=== PATIENT | female | born 1985 | race American Indian/Alaskan Native ===

== ENCOUNTER 2017-10-12 20:37 | Emergency (ER) | payer SELFPAY ==
[2017-10-12] MEDS ORDERED: NACL 0.9% 1000 ML 1,000 ML IV ONE (21:09)
[2017-10-12] MEDS ORDERED: ZOFRAN IV ONE (21:09)
--- NOTE | 2017-10-12 21:12 | Emergency Department Report ---
HPI - General Chief Complaint: Syncope Time Seen by Provider: 10/12/17 21:04 - HPI HPI: 31-year-old female presents to the emergency department, brought in by her sister, after the patient had a witnessed episode of passing out while [place] the park. She fell down and hit her head and started having some bleeding from the nose. Since then she has gotten nauseated and has been vomiting, sometimes with blood. She came into triage and appears to be going in and out of consciousness. She has a past medical history of hypertension. She does not have a primary care physician. She did not receive anything for her symptoms prior presentation. ED Past Medical Hx - Past Medical History Hx Hypertension: Yes - Surgical History Additional Surgical History: ovarian cyst. - Social History Smoking Status: Never Smoker Substance Use Type: None ED Review of Systems ROS: Stated complaint: PASSED OUT Other details as noted in HPI Comment: All other systems reviewed and negative Constitutional: denies: chills, fever Eyes: denies: eye pain, eye discharge, vision change ENT: epistaxis. denies: ear pain, throat pain Respiratory: denies: cough, shortness of breath, wheezing Cardiovascular: syncope. denies: chest pain, palpitations Gastrointestinal: nausea, vomiting Genitourinary: denies: urgency, dysuria, discharge Musculoskeletal: denies: back pain, joint swelling, arthralgia Skin: denies: rash, lesions Neurological: headache. denies: numbness Physical Exam - Physical Exam Vital Signs: Vital Signs 10/12/17 20:41 Temperature 98.3 F Pulse Rate 96 H Respiratory 18 Rate Blood Pressure 119/82 O2 Sat by Pulse 100 Oximetry Physical Exam: GENERAL: Patient is ill-appearing. Actively vomiting. HENT: Normocephalic. Patient has moist mucous membranes. Normal appearing right external ear canal and tympanic membrane. The left external ear canal is also unremarkable. However there is either a complete perforation of the left TM or she has a severe otitis media as there is dark erythema, inflammation seen to the proximal portion of the ear canal. EYES: Extraocular motions are intact. Pupils equal reactive to light bilaterally. NECK: Supple. Trachea is midline. CHEST/LUNGS: Clear to auscultation. There is no respiratory distress noted. HEART/CARDIOVASCULAR: Regular. There is no tachycardia. There is no murmur. ABDOMEN: Abdomen is soft, nontender. Patient has normal bowel sounds. There is no abdominal distention. SKIN: Skin is warm and dry. NEURO: Patient is awake but does appear drowsy. Mostly non-verbal but will say a few words in response to questions. Follow some commands. Withdraws to painful stimuli. GCS 14. MUSCULOSKELETAL: There is no tenderness or deformity. There is no limitation range of motion. ED Course Vital Signs 10/12/17 20:41 Temperature 98.3 F Pulse Rate 96 H Respiratory 18 Rate Blood Pressure 119/82 O2 Sat by Pulse 100 Oximetry - Consultations Consultation #1: As the patient has a left temporal nondisplaced skull fracture and a 1 cm left parietal/occipital subdural hematoma, patient will need transfer to another facility that has both neurosurgery and trauma. [facility] is on diversion. There are no ICU beds available at [facility] or [facility] at this time. 10/12/17 23:07 10/12/17 23:36 The patient was accepted for transfer to [facility] by the trauma attending , Dr Ozuna. ED Medical Decision Making - Lab Data Result diagrams: 10/12/17 21:13 10/12/17 21:13 - EKG Data -: EKG Interpreted by Mo EKG shows normal: sinus rhythm, axis, intervals, QRS complexes, ST-T waves Rate: normal - EKG Data When compared to previous EKG there are: previous EKG unavailable Interpretation: normal EKG - Radiology Data Radiology results: report reviewed PROCEDURE: CT HEAD/BRAIN WO CON TECHNIQUE: Computerized tomography of the head was performed without contrast material. HISTORY: Syncope COMPARISON: No prior studies are available for comparison. FINDINGS: There is a nondisplaced left temporal skull fracture. There is a left parietal/occipital subdural hematoma measuring up to 1 centimeter in thickness. There is minimal left the occipital/parietal pneumocephalus. There is no midline shift. The ventricles and cortical sulci are appropriate for the patient's age. The paranasal sinuses are clear. IMPRESSION: Left parietal/occipital subdural hematoma measuring up to 1 centimeter in thickness. There is no midline shift or herniation. Dr. Jalloh was notified by telephone at 9:43 p.m. central. Transcribed By: CO Dictated By: LYN BELL MD Electronically Authenticated By: LYN BELL MD Signed Date/Time: 10/12/172244 PROCEDURE: CT CERVICAL SPINE WO CON TECHNIQUE: Computerized tomography of the cervical spine was performed from the skull base to T1 without contrast material. HISTORY: Syncope COMPARISON: No prior studies are available for comparison. FINDINGS: Cervical vertebrae are intact. There are no fractures or malalignments. Disc spaces are normal. Facet joints are intact. Prevertebral soft tissues are normal in thickness. IMPRESSION: There is no cervical spine injury.. Transcribed By: CO Dictated By: LYN BELL MD Electronically Authenticated By: LYN BELL MD Signed Date/Time: 10/12/172245 - Medical Decision Making Patient presented after a ground-level fall from a syncopal episode. She has had some complaint of a headache, nausea and vomiting. There is some blood seen in the left nasal passage and the complaint that there was some blood in the emesis, which is most likely from the epistaxis. When the patient first presented to the emergency department she is a GCS of 14 as she does appear drowsy and slightly disoriented but otherwise no specific focal, motor deficits. She has been reevaluated multiple times and currently is more awake and alert and at a GCS of 15. EKG does not show any signs of ST elevation DC, dysrhythmia or ischemia. Labs have been mostly unremarkable except for some hypokalemia which we are replacing via IV. She had a CT scan of the head that shows a nondisplaced left temporal bone fracture and a 1 cm left subdural hematoma. After a few different hospitals were contacted, I was able to gain acceptance for transfer to a trauma center in [place]. Attempted to fly the patient there by helicopter but secondary to weather this was declined by the flight crew and the patient will go by ambulance, lights and sirens. She is receive some Keppra for prophylaxis against seizures. She is getting some antibiotics for what is either a left TM perforation or severe otitis media. She received some Zofran for her nausea and vomiting with great improvement. We will continue to monitor her until she leaves the department. The patient does not speak much [place]og[place]ese but there is a friend who is bedside who has been doing interpretation services. Portions of this chart were completed using dictation software and therefore there may be some dictation errors within this note. - Differential Diagnosis orthostatic hypotension, hypoglycemia, dysrhythmia, TIA, brain bleed Critical Care Time: Yes Critical care time in (mins) excluding proc time.: 35 Critical care attestation.: If time is entered above; I have spent that time in minutes in the direct care of this critically ill patient, excluding procedure time. Critical Care Time: Critical care time spent on this patient during her initial evaluation, multiple re-evaluations, ordering an interpretation of labs and imaging, discussion with the radiologist, discussion with the accepting trauma attending , discussions with the family. ED Disposition Clinical Impression: Subdural hematoma, Hypokalemia Temporal bone fracture Qualifiers: Encounter type: initial encounter Fracture type: closed Qualified Code(s): S02.19XA - Other fracture of base of skull, initial encounter for closed fracture Syncope Qualifiers: Syncope type: unspecified Qualified Code(s): R55 - Syncope and collapse Disposition: DC/TX-70 ANOTHER TYPE HLTHCARE Is pt being admited?: No Condition: Serious Instructions: Syncope (ED) Referrals: PRIMARY CARE, [Primary Care Provider] - 3-5 Days Time of Disposition: 23:52
[2017-10-12 21:36] LABS: Basophils % (Auto) 0.5 % (0.0-1.8); Eosinophils # (Auto) 0.2 K/mm3 (0.0-0.4); Eosinophils % (Auto) 1.8 % (0.0-4.3); Lymphocytes # (Auto) 3.2 K/mm3 (1.2-5.4); Lymphocytes % (Auto) 30.2 % (13.4-35.0); Mean Corpuscular HGB Conc 37 % (30-34); Mean Corpuscular Hemoglobin 33 pg (28-32); Mean Corpuscular Volume 91 fl (79-97); Monocytes # (Auto) 0.6 K/mm3 (0.0-0.8); Monocytes % (Auto) 5.6 % (0.0-7.3); Platelet Count 227 K/mm3 (140-440); Red Blood Count 4.07 M/mm3 (3.65-5.03); Red Cell Distribution Width 12.5 % (13.2-15.2)
[2017-10-12 21:38] LABS: Hematocrit 36.9 % (30.3-42.9); Hemoglobin 13.6 gm/dl (10.1-14.3)
[2017-10-12 21:55] LABS: Alanine Aminotransferase 14 units/L (7-56); Albumin 4.3 g/dL (3.9-5); BUN/Creatinine Ratio 16; Blood Urea Nitrogen 8 mg/dL (7-17); Calcium 8.9 mg/dL (8.4-10.2); Hemolysis Index 5
--- NOTE | 2017-10-12 22:51 | Cat Scan Report ---
FINAL REPORT PROCEDURE: CT HEAD/BRAIN WO CON TECHNIQUE: Computerized tomography of the head was performed without contrast material. HISTORY: Syncope COMPARISON: No prior studies are available for comparison. FINDINGS: There is a nondisplaced left temporal skull fracture. There is a left parietal/occipital subdural hematoma measuring up to 1 centimeter in thickness. There is minimal left the occipital/parietal pneumocephalus. There is no midline shift. The ventricles and cortical sulci are appropriate for the patient's age. The paranasal sinuses are clear. IMPRESSION: Left parietal/occipital subdural hematoma measuring up to 1 centimeter in thickness. There is no midline shift or herniation. Dr. Jalloh was notified by telephone at 9:43 p.m. crane.
--- NOTE | 2017-10-12 22:52 | Cat Scan Report ---
FINAL REPORT PROCEDURE: CT CERVICAL SPINE WO CON TECHNIQUE: Computerized tomography of the cervical spine was performed from the skull base to T1 without contrast material. HISTORY: Syncope COMPARISON: No prior studies are available for comparison. FINDINGS: Cervical vertebrae are intact. There are no fractures or malalignments. Disc spaces are normal. Facet joints are intact. Prevertebral soft tissues are normal in thickness. IMPRESSION: There is no cervical spine injury..
[2017-10-12] MEDS ORDERED: KEPPRA 1,000 MG/NS 0.75% 100ML 1,000 MG/100 ML BAG IV ONE (22:54)
[2017-10-12] MEDS ORDERED: CLEOCIN 900 MG/50 mL 900 MG/50 ML BAG IV ONE (23:15)
[2017-10-13 00:02] VITALS: BP 109/73
[2017-10-13] MEDS: KCL 10MEQ/100ML 10 MEQ/100 ML BAG IV SCH ×2 (00:05→00:22)
[2017-10-13 00:16] LABS: Bilirubin,Urine NEG (Negative); Blood,Urine NEG (Negative); Color,Urine Yellow (Yellow); Mucus,Urine FEW /HPF; Protein,Urine <15 mg/dL mg/dL (Negative); Urobilinogen,Urine < 2.0 mg/dL (<2.0)
[2017-10-13 00:24] LABS: Amphetamine Screen,Urine PRESUMPTIVE NEGATIVE; Benzodiazepines Screen,Urine PRESUMPTIVE NEGATIVE; Cannabinoid Screen,Urine PRESUMPTIVE NEGATIVE; Cocaine Screen,Urine PRESUMPTIVE NEGATIVE; Methadone Screen,Urine PRESUMPTIVE NEGATIVE; Opiate Screen,Urine PRESUMPTIVE NEGATIVE
[2017-10-13 00:25] LABS: INR 1.05 (0.87-1.13); Partial Thromboplastin Time 34.3 Sec. (24.2-36.6)
== END 2017-10-13 00:05 | disposition other institution (70) ==
LOC: ED 20:37
DX: S02.19XA Other fracture of base of skull, initial encounter for closed fracture (principal); S06.5X9A Traumatic subdural hemorrhage with loss of consciousness of unspecified duration, initial encounter; R55 Syncope and collapse; E87.6 Hypokalemia; I10 Essential (primary) hypertension; X58.XXXA Exposure to other specified factors, initial encounter; Y93.89 Activity, other specified; Y99.8 Other external cause status; Y92.830 Public park as the place of occurrence of the external cause
CPT/HCPCS: 36415; 70450; 72125; 80053; 80307; 81001; 84443; 84484; 84703; 85025; 85610; 85730; 86850; 86900; 86901; 93005; 93010; 96361; 96374; 96375; 99291; G0480; J1953; J2405; J3480; J7030; 80320